=== PATIENT | male | born 1965 | race Caucasian/White ===

== ENCOUNTER 2017-09-09 12:36 | Observation (INO) ==
[2017-09-09] MEDS ORDERED: Aspirin 81 MG TAB.CHEW PO ONE (13:01)
--- NOTE | 2017-09-09 13:05 | Emergency Department Note ---
Disposition Clinical Impression: Chest pain Qualifiers: Chest pain type: unspecified Qualified Code(s): R07.9 - Chest pain, unspecified Disposition: Admitted As Inpatient Condition: Good Referrals: Aden Andersen MD [Primary Care Provider] - Forms: ED Satisfaction Letter Chest Pain HPI - General Chief Complaint: ED Chest Pain Stated Complaint: CP Time Seen by Provider: 09/09/17 12:53 Source: patient Mode of arrival: private vehicle Limitations: no limitations Vital Signs Reviewed: Yes Nursing Notes Reviewed: Yes - History of Present Illness HPI Narrative: 52-year-old male no medical history who presents to the ER with a chief complaint of chest pain. Patient states it started around 10 AM this morning at work. Reports it felt sharp left-sided. He took an aspirin and nitroglycerin and said it took the sharp nature way. He continued to have a dull ache and decided to come in. He reports he had chest pain previously a few years ago and was worked up with a stress test that was normal. He denies a prior history of NM, DVT, PE, CAD. Denies a prior cardiac catheterization. He reports he has been sick for 2 weeks with cough as well as with a runny nose. No recent trauma. No other complaints. Pt complaint: chest pain Onset (ago): hour(s) Time: 10:00 Duration: constant Onset: during rest Pain Location: left chest Severity: moderate Severity scale (1-10): 5 Quality: sharp Pain Radiation: none Improves with: nitroglycerin Worsens with: nothing Context: recent illness Associated symptoms: Denies: nausea, vomiting, diaphoresis, dyspnea Treatments prior to arrival chest pain: aspirin, nitroglycerin - Related Data On Oral Contraceptives: No Home Medications Medication Instructions Recorded Confirmed Aspirin Enteric Coated [Aspirin EC] 81 mg PO HS 05/05/16 09/09/17 Cyclobenzaprine [Flexeril] 10 mg PO HS 05/05/16 09/09/17 Gabapentin [Neurontin] 300 mg PO HS 05/05/16 09/09/17 Omeprazole [PriLOSEC] 20 mg PO HS 05/05/16 09/09/17 Oxycodone HCl/Acetaminophen 1 each PO TID PRN 05/05/16 09/09/17 [Percocet 5-325 mg Tablet] Nitroglycerin [Nitrostat] 0.4 mg SL Q5M PRN 09/09/17 09/09/17 Allergies Allergy/AdvReac Type Severity Reaction Status Date / Time prednisone Allergy Gastrointestinal Verified 09/09/17 12:52 Upset All systems ED: reviewed and negative except as stated. Constitutional: Denies: fever Cardiovascular: Reports: chest pain Respiratory: Reports: cough. Denies: dyspnea Gastrointestinal: Denies: abdominal pain, nausea, vomiting, diarrhea Musculoskeletal: Denies: neck pain Chest Pain PMH - Past Medical History Medical history: Reports: myocardial infarction Psychiatric history: Reports: no psych history - Social History Smoking Status: Current every day smoker Alcohol use: Reports: occasionally Drug use: Reports: none Physical Exam - General Limitations: no limitations General appearance: alert, in no apparent distress - Head Head exam: atraumatic, normocephalic, normal inspection - Eye Eye exam: Present: normal appearance, EOMI - ENT ENT exam: normal exam - Neck Neck exam: Present: normal inspection, full ROM - Chest Chest inspection: Present: normal inspection, symmetric chest wall rise, tenderness (Patient does have some chest tenderness over the left anterior chest wall in the midclavicular line.) - Respiratory Respiratory exam: Present: normal lung sounds bilaterally - Cardiovascular Cardiovascular exam: Present: regular rate, normal rhythm, normal heart sounds - Abdominal Exam Abdominal exam: Present: soft, Non-Tender. Absent: tenderness, distention, rigidity - Extremities Exam Extremities exam: Present: normal inspection, full ROM - Expanded Upper Extremity Exam Shoulder exam: Present: normal inspection, full ROM Arm exam: Present: normal inspection, full ROM Elbow exam: Present: normal inspection, full ROM Forearm/Wrist exam: Present: normal inspection, full ROM Hand exam: Present: normal inspection, full ROM Vascular exam: Normal: radial pulse - Expanded Lower Extremity Exam Hip/Pelvis exam: Present: normal inspection, full ROM Upper leg exam: Present: normal inspection, full ROM Knee exam: Present: normal inspection, full ROM Lower leg exam: Present: normal inspection, full ROM Ankle exam: Present: normal inspection, full ROM Foot/toe exam: Present: normal inspection, full ROM Neurovascular/Tendon exam: Absent: motor deficit, sensory deficit - Neurological Exam Neurological exam: Present: alert, other (GCS 15.) - Psychiatric Psychiatric exam: Present: normal affect, normal mood - Skin Skin exam: Present: warm, dry, intact, normal color Course Course Narrative: Patient seen and examined. EKG reviewed with him ischemic features. We will obtain a chest x-ray as well as labs including troponin. His pain is somewhat reproducible here. He does report that his father of an NM at the age of 47. Aspirin and nitroglycerin will be given. Disposition pending. - Reevaluation(s) Reevaluation #1: Discussed imaging and labs with the patient. Reports that the nitroglycerin did not improve his pain. Morphine ordered. Discussed and offered admission versus repeat troponin here and pain control. Patient would like to speak with his significant other prior to decision making. Reevaluation #2: Patient agreeable with staying in the hospital. Hospitalist paged. Time: 15:00 Vital Signs Temperature 98.1 F 09/09/17 12:50 Pulse Rate 83 09/09/17 12:50 Respiratory Rate 16 09/09/17 12:50 Blood Pressure 120/82 09/09/17 12:50 O2 Sat by Pulse Oximetry 98 09/09/17 12:50 Temperature 98.1 F 09/09/17 12:50 Pulse Rate 84 09/09/17 15:31 Respiratory Rate 20 09/09/17 14:25 Blood Pressure 119/78 09/09/17 15:31 O2 Sat by Pulse Oximetry 95 09/09/17 15:31 Oxygen Delivery Oxygen Delivery Room Air Chest Pain - MDM Narrative Medical decision making narrative: 52-year-old male presents to the ER to the chest pain. Started this morning at work around 10 AM. No exertional features. He has been sick as well over the last 2 weeks. No history of CAD, DVT or PE. Reports his father at the age of 47 of an NM. Normal stress test as per patient 4 years ago. EKG shows no ischemic features. Chest x-ray unremarkable. Initial troponin 0. Patient given aspirin, sublingual nitroglycerin here as well as morphine. Admitted to the hospitalist service for chest pain rule out ACS. - Lab Data Lab results reviewed: Yes I reviewed the patient's lab results. Result diagrams: 09/09/17 13:08 09/09/17 13:08 Lab Results 09/09/17 09/09/17 09/09/17 Range/Units 13:08 13:08 13:08 WBC 5.7 (4.3-11.1) K/mcL RBC 5.03 (4.19-5.50) M/mcL Hgb 15.9 (12.9-16.9) g/dL Hct 46.1 (37.5-50.1) % MCV 91.7 (83.0-100.0) fL MCH 31.6 (28.0-33.3) pg MCHC 34.5 (31.6-35.5) g/dL RDW 12.8 (11.5-14.5) % Plt Count 171 (140-400) K/mcL MPV 10.3 (9.4-12.4) fL Immature Gran % 0.4 (0-4) % Seg Neutrophils % 59.7 % Lymphocytes % 29.8 % Monocytes % 6.8 % Eosinophils % 2.8 % Basophils % 0.5 % Neutrophils # 3.4 (1.6-8.9) K/mcL Lymphocytes # 1.7 (0.6-4.6) K/mcL Monocytes # 0.4 (0.0-1.3) K/mcL Eosinophils # 0.2 (0.0-0.6) K/mcL Basophils # 0.0 (0.0-0.2) K/mcL Sodium 139 (136-145) mEq/L Potassium 4.0 (3.5-4.5) mEq/L Chloride 102 (98-109) mEq/L Carbon Dioxide 29 (19-29) mEq/L BUN 10 (8-26) mg/dL Creatinine 0.87 (0.72-1.25) mg/dL Est GFR ( Amer) > 60 (> 60) Est GFR (Non-Af Amer) > 60 (> 60) BUN/Creatinine Ratio 11 (6-26) Glucose 88 (70-99) mg/dL Calculated Osmolality 286 (280-300) Calcium 9.3 (8.6-10.8) mg/dL Troponin I 0.00 (0-0.03) ng/mL - Radiology Data Radiology results reviewed: Yes I reviewed the patient's radiology results. Chest X-Ray 09/09/17 13:01 IMPRESSION: No acute findings. D/ / Hope Reeves MD / Hope Reeves MD Interpreting Provider: Hope Reeves MD - EKG Data EKG attestation: Yes I reviewed and interpreted this EKG. EKG results narrative: EKG demonstrates sinus rhythm with rate of 82 bpm. Normal axis. Normal intervals. Normal R-wave progression. No gross ST elevations or depressions. No acute ischemic findings. No significant changes from previous EKG dated 01/12 Heart Score - Score History: Slightly Suspicious EKG: Normal Age: 45-65 Risk Factors: 1-2 risk factors Troponin: Less than normal limit HEART Score Total: 2 S.B.A.R. - S.B.A.R. Situation: Demographics, MOA Background: Presenting Complaint, Relevant PMH, Meds, & Allergies Assessment: Course and respsone to treatment, Exam Concerns, Patient/Family Expectation, Pertinant Lab Results Recommendation: Barrier(s) to disposition, Recommendation based on pending studies, treatments, or consults S.B.A.RElla Report Given to: Pepe NgBDaija Repor Time: 15:32 Attestation Statement - Attestation Attestation: I, Lev Reynolds DO, examined this patient [id number] and my medical decision-making was reviewed with Dr. Robson Leiva, Resident Physician. I agree with the documented findings, disposition and treatment plan as described except to the extent set forth below. Please see my progress notes for details. 52-year-old male with left-sided chest pain acute onset approximate 9:30 this morning present specimen 4 hours after the onset of symptoms. Patient denies any cardiac history he is a smoker. Denies any fevers chills nausea vomiting or diarrhea. Denies a cough, congestion. Patient otherwise is unremarkable presentation this time. Lungs are clear heart is regular abdomen soft nontender nondistended with no guarding. Patient does have reproducible tenderness over the sternal margin left-sided chest wall. His heart score is a 2 pitting him at low risk. Patient of note does have ankylosing and aspirin at home has never had a stent or catheterization of his heart. It is unknown based on the symptoms storied history whether or not this is for angina-like presentation nares prophylactically given the medication. Patient has not followed up with a advanced practice professional but does follow up with his primary care provider. Patient does not have typical chest pain symptoms at this point. Initial laboratory workup including EKG and troponin were all unremarkable. Patient was offered admission but requested to have reevaluation for troponin and will discuss possibility admission at that time. Patient family forms are all comfortable this plan. See detailed documentation of the physical exam, medical intervention, medical decision-making and the resident physician's note
[2017-09-09 13:20] LABS: Basophils % 0.5 %; Eosinophils # 0.2 K/mcL (0.0-0.6); Eosinophils % 2.8 %; Hematocrit 46.1 % (37.5-50.1); Hemoglobin 15.9 g/dL (12.9-16.9); Immature Granulocytes % 0.4 % (0-4); Lymphocytes # 1.7 K/mcL (0.6-4.6); Lymphocytes % 29.8 %; Mean Corpuscular HGB Conc 34.5 g/dL (31.6-35.5); Mean Corpuscular Hemoglobin 31.6 pg (28.0-33.3); Mean Corpuscular Volume 91.7 fL (83.0-100.0); Mean Platelet Volume 10.3 fL (9.4-12.4); Monocytes # 0.4 K/mcL (0.0-1.3); Monocytes % 6.8 %; Neutrophils # 3.4 K/mcL (1.6-8.9); Platelet Count 171 K/mcL (140-400); Red Blood Count 5.03 M/mcL (4.19-5.50); Red Cell Distribution Width 12.8 % (11.5-14.5); Segmented Neutrophils % 59.7 %
[2017-09-09] MEDS: Nitroglycerin 0.4 MG TAB.SUBL SL ONE ×3 (13:23→13:34)
[2017-09-09 13:28] LABS: BUN/Creatinine Ratio 11 (6-26); Blood Urea Nitrogen 10 mg/dL (8-26); Calcium 9.3 mg/dL (8.6-10.8); Carbon Dioxide 29 mEq/L (19-29); Chloride 102 mEq/L (98-109); Glucose 88 mg/dL (70-99); Osmolality,Calculated 286 (280-300); Sodium 139 mEq/L (136-145); eGFR For African Americans > 60 (> 60); eGFR For Non-African Americans > 60 (> 60)
[2017-09-09] MEDS ORDERED: *HR* Morphine 2 MG/ML SYRINGE IVP ONE (14:09)
[2017-09-09] MEDS ORDERED: Naloxone 0.4 MG/ML INJ IVP PRN (16:21)
[2017-09-09] MEDS ORDERED: Nitroglycerin 0.4 MG TAB.SUBL SL PRN (16:23)
--- NOTE | 2017-09-09 16:31 | Internal Med History&Physical ---
<Pepe Saini - Last Filed: 09/09/17 19:57> Date of Encounter: 09/09/17 Time of Encounter: 16:26 Assessment and Plan (1) ACS (acute coronary syndrome) Current visit: Yes Status: Acute Prior history of myocardial infarction. The patient continues reported left- sided dull chest pain without radiation. Chest began approximately 10 AM this morning; had some mild improvement with sublingual nitroglycerin but continues to endorse chest pain. My concern is for unstable angina. Reports an extensive family history of myocardial infarctions and early cardiac . Father of a heart attack at age 47, patient has had a previous PR and is occurring every day smoker. Last stress test was in February 2014, no ischemia was found at that time, patient had an estimated ejection fraction of 65-70%. Troponin negative at this time and 0.01 plan is continue to monitor rule out PR. Continuous telemetry Serial troponins Echocardiogram Consult cardiology Start Nitropaste now Start heparin drip now CBC and BMP in the morning (2) DVT prophylaxis Current visit: Yes Status: Acute The patient is on a heparin drip Internal Medicine - H&P: HPI Chief complaint: Chest pain Admitted From: Home Plans for Post Hospital Care: Home History of present illness: Mr. Arias is a 52 year old male past medical history of PR. [facility] today with left-sided also chest pain again approximately 10 AM this morning while he was at work. He describes the chest pain initially as sharp percent improved to dull and constant after taking one sublingual nitroglycerin. He admits to exertional dyspnea for the last 2 weeks that does improve with rest. Denies any fevers, chills, nausea, vomiting, diarrhea, bilateral extremity swelling or pain. He explains that his chest pain feels like his past PR additionally is concerned because his father at a young age from PR 2 years ago reported similar symptoms was worked up as stress echo that was found to be normal with an EF of 60-70%. He denies any prior cardiac catheterization. He Is additionally concerned for a cough for the last 2 weeks , runny nose and postnasal drip.EGD showed chest x-ray with no acute pulmonary process troponin -0.01. Minimally panel and CBC unremarkable. He is being admitted for further workup and evaluation Past Med Surg Social Fam HX - Past Medical History Medical history: myocardial infarction Psychiatric history: no psych history - Social History Smoking Status: Current every day smoker Smokeless Tobacco Status: No Alcohol use: occasionally Drug use: none - Family History Father History Unknown: Yes Race: Family Member Ethnicity: Non- Living Status: Age at : 47 Cause of : Mi Mother History Unknown: Yes Race: Family Member Ethnicity: Non- Age at : 49 Cause of : Cancer Hx Family Endocrine Disorder: Yes (DM) Internal Medicine - H&P: Meds Aspirin Enteric Coated [Aspirin EC] 81 mg PO HS 05/05/16 [History] Cyclobenzaprine [Flexeril] 10 mg PO HS 05/05/16 [History] Gabapentin [Neurontin] 300 mg PO HS 05/05/16 [History] Omeprazole [PriLOSEC] 20 mg PO HS 05/05/16 [History] Oxycodone HCl/Acetaminophen [Percocet 5-325 mg Tablet] 1 each PO TID PRN [History] Nitroglycerin [Nitrostat] 0.4 mg SL Q5M PRN 09/09/17 [History] 3 Allergy/AdvReac Type Severity Reaction Status Date / Time prednisone Allergy Gastrointestinal Verified 09/09/17 12:52 Upset All Systems PM: A 10-system review of systems was performed and is negative for pertinent findings except as documented above in the HPI. - Constitutional Constitutional: no chills, no fever(s), no night sweats - EENT Eyes: no change in vision, no discharge, no pain, no photophobia Ears: no ear discharge, no ear pain, no tinnitus Nose, mouth and throat: no dysphagia, no nasal discharge, no neck pain, no sore throat - Cardiovascular Cardiovascular ROS IM: as per HPI, chest pain, dyspnea on exertion, no diaphoresis, no dyspnea, no lightheadedness, no palpitations, no syncope - Respiratory Respiratory: dyspnea on exertion, no cough, no dyspnea, no wheezing, no excessive phlegm production - Gastrointestinal Gastrointestinal: no abdominal pain, no diarrhea, no hematemesis, no hematochezia, no melena, no nausea, no vomiting - Musculoskeletal Musculoskeletal ROS IM: no numbness, no tingling - Integumentary Integumentary IM: no rash, no unusual bruising - Neurological Neurological ROS: no confusion, no convulsions, no focal weakness, no numbness, no tingling, no tremor(s) - Hematologic/Lymphatic Hematologic/Lymphatic: no easy bruising - Constitutional Vitals: Temp Pulse Resp BP Pulse Ox 98.1 F 84 20 119/78 95 09/09/17 12:50 09/09/17 15:31 09/09/17 14:25 09/09/17 15:31 09/09/17 15:31 General appearance: Present: cooperative, A&O X 3, no acute distress, answers questions appropriately - Head Head exam: Present: atraumatic, normocephalic - Eye Eye exam: Present: EOMI, PERRL, conjuntiva pink, sclera anicteric Pupils: Present: PERRL - Neck Neck exam general surgery: Present: supple, trachea midline. Absent: lymphadenopathy - Respiratory Respiratory exam: Present: CTAB. Absent: accessory muscle use, rales, rhonchi, wheezes - Cardiovascular Cardiovascular exam: Present: RRR, +S1, +S2. Absent: diastolic murmur, gallop, rubs, systolic murmur - GI/Abdominal GI/Abdominal exam: Present: normal bowel sounds, soft, no peritoneal signs. Absent: distended, tenderness - Extremities Exam Extremities exam: Present: warm, radial pulses palpable and symmetrical. Absent : calf tenderness, cyanotic, pedal edema - Neurological Exam Neurological exam: Present: CN II-XII intact, oriented X3, no focal deficits. Absent: pronater drift, facial droop, speech deficit - Skin Skin exam: Present: dry, intact Internal Med - H&P Results - Labs CBC & Chem 7: 09/09/17 13:08 09/09/17 13:08 - Diagnostic Studies Chest x-ray Status: image reviewed by me Additional comments: No acute cardiopulmonary process <Rasta Ji - Last Filed: 09/09/17 20:07> Date of Encounter: 09/09/17 Internal Medicine - H&P: HPI History of present illness: Mr. Arias is a 52 year old male All Systems PM: A 10-system review of systems was performed and is negative for pertinent findings except as documented above in the HPI. - Constitutional Vitals: Temp Pulse Resp BP Pulse Ox 98.7 F 86 17 116/72 96 09/09/17 19:26 09/09/17 19:26 09/09/17 19:26 09/09/17 19:26 09/09/17 19:26 Internal Med - H&P Results - Labs CBC & Chem 7: 09/09/17 13:08 09/09/17 13:08 Labs: Cardiac Enzymes 09/09/17 Range/Units 19:18 Troponin I 0.00 (0-0.03) ng/mL - Attending Attestation I independently obtained history and examined this patient and my medical decision-making was reviewed with the nurse practitioner. I agree with the documented findings, disposition and treatment plan as described. My findings are summarized below: Patient currently reports left-sided sharp, 5/10 chest pain. Denies any shortness of breath. On exam he is in no acute distress. Heart is regular. Lungs are clear. Troponin is 0.00. EKG was personally reviewed shows normal sinus rhythm 82 bpm with normal axis and intervals no acute ST or T-wave changes. Assessment: Unstable angina Plan: We will trend troponin. Monitor on telemetry. Start heparin drip. Nitropaste. Echocardiogram and cardiology consult in the morning. Rasta Ji MD
[2017-09-09] MEDS: *HR* OxyCODONE/APAP 5/325 TABLET PO PRN (17:35)
[2017-09-09] MEDS ORDERED: *HR* Heparin 5,000 UNIT/ML VIAL IVP PRN ×2 (19:51)
[2017-09-09] MEDS ORDERED: *HR* Heparin 5,000 UNIT/ML VIAL IVP ONE (19:51)
[2017-09-09] MEDS ORDERED: Heparin 25,000 UNIT/500 ML D5W 25,000 UNIT/500 ML MLS IVC SCH (20:00)
[2017-09-09 20:40] LABS: Prothrombin Time 10.8 Seconds (9.4-12.1)
[2017-09-09 20:43] LABS: Activated Partial Thrombo Time 30.3 Seconds (26.0-36.0)
[2017-09-09] MEDS: Nitroglycerin 1 INCH/GM PACKET TP SCH (20:52)
[2017-09-09] MEDS: Gabapentin 300 MG CAPSULE PO SCH (20:52)
[2017-09-09] MEDS: Aspirin Enteric Coated 81 MG Tablet PO SCH (20:52)
[2017-09-09 20:57] LABS: Hematocrit 42.6 % (37.5-50.1); Hemoglobin 14.8 g/dL (12.9-16.9); Mean Corpuscular HGB Conc 34.7 g/dL (31.6-35.5); Mean Corpuscular Hemoglobin 31.8 pg (28.0-33.3); Mean Corpuscular Volume 91.6 fL (83.0-100.0); Mean Platelet Volume 10.5 fL (9.4-12.4); Platelet Count 152 K/mcL (140-400); Red Blood Count 4.65 M/mcL (4.19-5.50); Red Cell Distribution Width 12.9 % (11.5-14.5)
[2017-09-10 00:47] LABS: Basophils % 0.4 %; Eosinophils # 0.2 K/mcL (0.0-0.6); Eosinophils % 4.1 %; Hematocrit 42.5 % (37.5-50.1); Hemoglobin 14.6 g/dL (12.9-16.9); Immature Granulocytes % 0.4 % (0-4); Immature Platelets 4.8 % (1.1-6.1); Lymphocytes # 1.8 K/mcL (0.6-4.6); Lymphocytes % 33.4 %; Mean Corpuscular HGB Conc 34.4 g/dL (31.6-35.5); Mean Corpuscular Hemoglobin 31.5 pg (28.0-33.3); Mean Corpuscular Volume 91.6 fL (83.0-100.0); Mean Platelet Volume 10.3 fL (9.4-12.4); Monocytes # 0.4 K/mcL (0.0-1.3); Monocytes % 6.7 %; Platelet Count 156 K/mcL (140-400); Red Blood Count 4.64 M/mcL (4.19-5.50); Red Cell Distribution Width 12.9 % (11.5-14.5)
[2017-09-10 01:01] LABS: BUN/Creatinine Ratio 11 (6-26); Blood Urea Nitrogen 11 mg/dL (8-26); Calcium 9.2 mg/dL (8.6-10.8); Carbon Dioxide 28 mEq/L (19-29); Chloride 105 mEq/L (98-109); Chol/HDL Ratio 3.9 (0-4.9); Cholesterol 164 mg/dL (< 200); Glucose 107 mg/dL (70-99); HDL Cholesterol 42 mg/dL (40-59); LDL Cholesterol,Calculated 100 mg/dL (0-99); Osmolality,Calculated 292 (280-300); Potassium 3.9 mEq/L (3.5-4.5); Sodium 141 mEq/L (136-145); Triglycerides 111 mg/dL (< 150); eGFR For African Americans > 60 (> 60); eGFR For Non-African Americans > 60 (> 60)
[2017-09-10] MEDS ORDERED: *HR* Enoxaparin 40 MG/0.4 ML SYRINGE SQ SCH (06:00)
[2017-09-10] MEDS: Nitroglycerin 1 INCH/GM PACKET TP SCH (06:37)
[2017-09-10] MEDS ORDERED: Regadenoson 0.4 MG/5 ML SYRINGE IVP ONE (09:48)
[2017-09-10] MEDS ORDERED: Acetaminophen 325 MG TABLET PO PRN (10:43)
--- NOTE | 2017-09-10 15:30 | Internal Med Progress Note ---
Date of Encounter: 09/10/17 Time of Encounter: 08:40 - Assessment and plan (1) Chest pain Current Visit: Yes Status: Acute Assessment and plan: Patient with precordial chest pain concerning for ACS. Troponins have been negative. We will stop heparin drip. Discussed with cardiology. Plan for cardiac stress test. Consult cardiology if stress test abnormal. Unable to do a stress test today as patient had nitro paste on. Plan for stress test tomorrow. Qualifiers: Chest pain type: precordial pain Qualified Code(s): R07.2 - Precordial pain (2) DVT prophylaxis Current Visit: Yes Status: Acute Assessment and plan: With SCDs and early ambulation - Subjective Interval history: Patient is awake and alert. Does have some chest pain although this is improved compared to yesterday. Denies any shortness of breath. Has been nothing by mouth overnight. - Constitutional Vitals: Temp Pulse Resp BP Pulse Ox 98.2 F 73 17 122/75 98 09/10/17 11:39 09/10/17 11:39 09/10/17 11:39 09/10/17 11:39 09/10/17 11:39 General appearance: Present: cooperative, A&O X 3, no acute distress, answers questions appropriately - Neck Neck exam general surgery: Present: supple, trachea midline. Absent: lymphadenopathy - Respiratory Respiratory exam: Present: CTAB. Absent: accessory muscle use, rales, rhonchi, wheezes - Cardiovascular Cardiovascular exam: Present: RRR, +S1, +S2. Absent: diastolic murmur, gallop, rubs, systolic murmur - GI/Abdominal GI/Abdominal exam: Present: normal bowel sounds, soft, no peritoneal signs. Absent: distended, tenderness - Extremities Exam Extremities exam: Present: warm, radial pulses palpable and symmetrical. Absent : calf tenderness, cyanotic, pedal edema Internal Medicine: Result - Labs CBC & Chem 7: 09/10/17 00:35 09/10/17 00:35 Labs: Short CBC 09/09/17 09/10/17 Range/Units 20:24 00:35 WBC 5.6 5.4 (4.3-11.1) K/mcL Hgb 14.8 14.6 (12.9-16.9) g/dL Hct 42.6 42.5 (37.5-50.1) % Plt Count 152 156 (140-400) K/mcL Neutrophils # 3.0 (1.6-8.9) K/mcL BMP 09/10/17 00:35 Sodium 141 Potassium 3.9 Chloride 105 Carbon Dioxide 28 BUN 11 Creatinine 0.96 Glucose 107 H Calcium 9.2 Cardiac Enzymes 09/09/17 09/10/17 Range/Units 19:18 00:35 Troponin I 0.00 0.00 (0-0.03) ng/mL - ABG Interpretation ABG results: PT/INR, D-dimer PT 10.8 Seconds (9.4-12.1) 09/09/17 20:24 Consult Discharge Plan - Plan Referrals: Aden Andersen MD [Primary Care Provider] -
[2017-09-10] MEDS: *HR* OxyCODONE/APAP 5/325 TABLET PO PRN ×2 (15:34→22:09)
[2017-09-10] MEDS: Aspirin Enteric Coated 81 MG Tablet PO SCH (22:07)
[2017-09-10] MEDS: Gabapentin 300 MG CAPSULE PO SCH (22:10)
[2017-09-11] MEDS ORDERED: Regadenoson 0.4 MG/5 ML SYRINGE IVP ONE (05:49)
[2017-09-11 10:54] VITALS: BP 133/82
[2017-09-11] MEDS: *HR* OxyCODONE/APAP 5/325 TABLET PO PRN (10:55)
--- NOTE | 2017-09-11 11:08 | Discharge Summary ---
Date of Encounter: 09/11/17 Time of Encounter: 11:06 - Discharge Diagnosis (1) Chest pain Priority: Primary Status: Acute Qualifiers: Chest pain type: precordial pain Qualified Code(s): R07.2 - Precordial pain (2) DVT prophylaxis Priority: Secondary Status: Acute (3) Tobacco abuse Priority: Secondary Status: Acute (4) ACS (acute coronary syndrome) Priority: Secondary Status: Ruled-out - Discharge Medications Home Medications: Aspirin Enteric Coated [Aspirin EC] 81 mg PO HS 05/05/16 [History] Cyclobenzaprine [Flexeril] 10 mg PO HS 05/05/16 [History] Gabapentin [Neurontin] 300 mg PO HS 05/05/16 [History] Omeprazole [PriLOSEC] 20 mg PO HS 05/05/16 [History] Oxycodone HCl/Acetaminophen [Percocet 5-325 mg Tablet] 1 each PO TID PRN [History] Nitroglycerin [Nitrostat] 0.4 mg SL Q5M PRN 09/09/17 [History] Allergies/Adverse Reactions: 3 Allergy/AdvReac Type Severity Reaction Status Date / Time prednisone Allergy Gastrointestinal Verified 09/09/17 12:52 Upset Procedures/tests Complete & Pending: Procedures Performed prior 72 hours Category Date Time Status NM lluvia perf SPECT multi [NM] Routine Exams 09/11/17 07:00 Taken SP exercise nuclear stress Routine Y 09/11/17 07:30 Completed Date of admission: 09/09/17 16:20 Primary care physician: Aden Andersen MD Discharging clinician: Kathy Carvajal Anticipated date of discharge: 09/11/17 - Patient Status Disposition: Home, Self-Care Condition: Good Functional capacity at discharge: independent ambulation Overall status at discharge: patient is progressing back to baseline - Discharge Instructions Instructions: Myocardial Infarction (DC), Chest Pain (DC), Low Sodium Diet (DC) Follow Up With: Aden Andersen MD [Primary Care Provider] - 09/17/17 1:15 pm - Diet and Activity Activity: increase activity as tolerated Diet: low fat, low cholesterol, low salt diet Hospital course: Mr. Arias is a 52 year old male patient with history of prior [place] presented to the ER with complaints of chest pain. Pain was sharp and had improved after he took sublingual nitroglycerin. He was placed under observation to rule out acute coronary syndrome. Nitropaste was placed and venous heparin was started for possible unstable angina. His troponins were trended. His troponins remained negative and after discussing with cardiology, heparin was stopped and patient underwent cardiac stress test today. Stress test did not show any reversible ischemia. Patient is no longer having any chest pain at this time. He stable to be discharged home and will follow up with his primary care provider for further management. - Time Spent with Patient Total time spent providing and/or coordinating discharge services: Less than 30 minutes (25 min) - Constitutional Vitals: Temp Pulse Resp BP Pulse Ox 98.3 F 80 17 133/82 98 09/11/17 10:49 09/11/17 10:49 09/11/17 10:49 09/11/17 10:49 09/11/17 10:49 General appearance: Present: cooperative, A&O X 3, no acute distress, answers questions appropriately - Respiratory Respiratory exam: Present: CTAB. Absent: accessory muscle use, rales, rhonchi, wheezes - Cardiovascular Cardiovascular exam: Present: RRR, +S1, +S2. Absent: diastolic murmur, gallop, rubs, systolic murmur - GI/Abdominal GI/Abdominal exam: Present: normal bowel sounds, soft, no peritoneal signs. Absent: distended, tenderness - VTE Documentation of Mechanical Device: Intermittent pneumatic compression device
== END 2017-09-11 11:47 | disposition home or self-care (01) ==
LOC: EMEROO 12:36 → 2ANU 12:36
PROVIDERS: ADMIT Nurse Practitioner; ATTEND Internal Medicine